=== PATIENT | female | born 1990 | race African-American/Black ===

== ENCOUNTER → 2019-07-11 | Outpatient (CLI) | payer OTHER | END | disposition home or self-care (01) | LOC: RD 08:11 | DX: M54.12 Radiculopathy, cervical region (principal); M54.6 Pain in thoracic spine ==

== ENCOUNTER → 2019-07-17 | Outpatient (CLI) | payer OTHER ==
[2019-07-17 11:39] LABS: microscopic required? NO
[2019-07-17 12:02] LABS: ALBUMIN 3.7 g/dL (3.4-5.0); ALKALINE PHOSPHATASE 78 U/L (46-116); ALT/SGPT 16 U/L (14-59); AST/SGOT 16 U/L (15-37); BILIRUBIN TOTAL 0.6 mg/dL (0.20-1.00); CALCIUM 8.8 mg/dL (8.5-10.1); CARBON DIOXIDE 28.7 mmol/L (21-32); CHLORIDE SERUM 104 mmol/L (98-107); CREATININE SERUM 0.8 mg/dL (0.6-1.0); GFR1 > 60 mL/min; GLUCOSE SERUM 88 mg/dL (74-106); HDL CHOLESTEROL 43 mg/dL (40-60); POTASSIUM SERUM 4.2 mmol/L (3.5-5.1); SODIUM SERUM 139 mmol/L (136-145); TOTAL PROTEIN, SERUM 7.5 g/dL (6.4-8.2); TRIGLYCERIDES 69 mg/dL (<150)
[2019-07-17 12:13] LABS: CHOLESTEROL 132 mg/dL (<200); CHOLESTEROL/HDL RATIO 3.1
[2019-07-17 12:14] LABS: UA SPECIFIC GRAVITY 1.015 (1.005-1.035); urine erythrocyte NEGATIVE (NEGATIVE)
[2019-07-17 12:26] LABS: RED CELL DISTRIBUTION WIDTH 14.4 % (11.5-14.5)
[2019-07-17 12:27] LABS: BASOPHIL % 0.9 % (0-2)
[2019-07-17 12:30] LABS: PLATELET COUNT 256 x10^3mcL (130-400)
[2019-07-17 12:32] LABS: PATH REVIEW for HEMA NO
== END | disposition home or self-care (01) ==
LOC: CT 09:00
PROVIDERS: Allergy & Immunology
DX: J32.9 Chronic sinusitis, unspecified (principal)

== ENCOUNTER → 2019-07-26 | Outpatient (CLI) | payer OTHER | END | disposition home or self-care (01) | LOC: RD 16:31 | DX: M53.3 Sacrococcygeal disorders, not elsewhere classified (principal) ==

== ENCOUNTER → 2019-08-15 | Outpatient (CLI) | payer OTHER | END | disposition home or self-care (01) | LOC: LB 15:41 | DX: Z11.3 Encounter for screening for infections with a predominantly sexual mode of transmission (principal) | CPT/HCPCS: 86694 ==